=== PATIENT | female | born 1965 | race Caucasian/White ===

== ENCOUNTER 2016-08-08 22:13 | Emergency (ER) | payer OTHER ==
[~2016-08-08] VITALS: Ht 160 cm; Wt 79.5 kg
[~2016-08-08 22:13] MED LIST: CALC-952 PO; CITA20TA11 PO; MULT-1018 PO; OXYC1TAB91 PO; TAMS0.4C98 PO
[2016-08-08 22:15] VITALS: BP 133/83; PULSE 70; RESP 16; O2SAT 99
--- NOTE | 2016-08-08 23:11 | ED.REPORT ---
HPI-Headache Date of Service Aug 08, 2016 ED Provider: Doc,Ed MD The patient is a 51 yo female with history of migraine headache, anxiety, and gastric bypass who presents to the ER for migraine headache onset prior to arrival. Patient reports a migraine attack around 1600 today, which improved with rest and lying in the dark. However, around 2100, the headache returned and worse than before. The headache starts from the occiput and radiates to the front. The pain is throbbing. Other associated symptoms include nausea, photophobia, and phonophobia. She denies vomiting, neck stiffness, head trauma, SOB, CP, fever, chills, numbness, tingling, one-sided weakness, or slurred speech. Patient states to go to the ER for migraine attack in the past and the headache cocktail worked well for her. She is not on any migraine medication at home. She is on Endocet for recent right finger fracture and shoulder tendinitis. Nursing Notes Stated Complaint: HEADACHE/ VOMITING Chief Complaint: Headache Nursing Notes Reviewed: Yes Allergies: Coded Allergies: No Known Drug Allergies (Verified Allergy, Unknown, 08/08/16) Scheduled Calcium Carbonate/Vitamin D3 (Calcium 500 mg Chewable Tablet) 1 Each Tab.chew 3 EACH PO DAILY Citalopram (Citalopram) 20 Mg Tablet 20 MG PO DAILY Multivitamin (Multi Vitamin Daily) 1 Each Tablet 1 EACH PO DAILY Tamsulosin (Flomax) 0.4 Mg Capsule 0.4 MG PO DAILY Scheduled PRN Oxycodone HCl/Acetaminophen (Endocet 10-325 mg Tablet) 1 Each Tablet 2 EACH PO [id number] PRN PRN For Pain General Time Seen by MD: 23:10 Chief Complaint Migraine headache Hx Obtained From: Patient, Spouse Arrived By: Walk-in Sudden in Onset?: Yes Onset Occurred: Just prior to arrival Symptom Duration: Since onset Location: : Frontal bilateral: Occipital bilateral Quality: Painful, Throbbing Radiation: : Does not radiate Severity: Current: Moderate Severity: Maximum: Severe Associated with: Reports: Nausea, Photophobia, Denies: Aura visual, Confusion, Difficulty speaking, Fever, Nasal congestion , Numbness, Syncope, Vertigo, Visual disturbance, Vomiting Pertinent Negative: Pt denies other symptoms Exacerbated by: Head movement, Light, Sound Pertinent Negative: Relieved by nothing Recent Healthcare: No recent doctor visit Similar Sx Previous: Yes Risk-Headache )( SAH Risk Stratification RF Statements: No risk factors )( IC Mass Risk Stratification RF Statements: No risk factors Past Medical History Past Medical History Endometriosis Kidney infections Arthritis Migraine headaches Asthma Reports: GERD Past Surgical History CS x3 Laparoscopies Upper Endscoscopy (+gastritis, ?Sanchez's - early) Gastric Bypass Reports: Appendectomy, Hysterectomy Family History noncontributory Smoking History Former Smoker (quit in 1996) Social History Alcohol Use: Denies alcohol use Drug Use: Denies drug use Other Social History: Good social support, Ambulatory Status Independent Review of Systems Basic Review of Systems Respiratory: No shortness of breath, No cough, No wheeze Cardiovascular: No chest pain, No dyspnea on exertion, No orthopnea, No parox noct dyspnea, No palpitations Allergy / Immune: No allergy Constitutional: Denies: Chills, Fatigue, Fever, Lethargy Eyes: Reports: Photophobia, Denies: Blurred bilateral, Discharge bilateral, Visual loss bilateral Ears / Nose / Throat: Denies: Earache bilateral, Sinus problem GI: Reports: Nausea, Denies: Abdominal pain, Anorexia, Constipation, Diarrhea, Dysphagia, Vomiting Musculoskeletal: Reports: Joint pain, Neck pain Neurologic: Reports: Headache, Denies: Abnormal movement, Bladder dysfunction, Bowel dysfunction, Confusion , Dizziness, Focal weakness, Lightheaded, Numbness, Slurred speech, Unable to speak, Vision change, Weakness Psychiatric: Reports: Anxiety, Denies: Agitation, Confusion, Delusional, Depression Complete sys rev & neg: except as marked. Physical Exam Initial Vital Signs Vital Signs (First) Date Time Temp Pulse Resp B/P Pulse Ox O2 Delivery O2 Flow Rate FiO2 08/08/16 22:15 36.3 70 16 133/83 99 Room Air Initial VS: Reviewed, Vital signs normal ENT: Mucous membranes moist, Conjunctiva normal, No scleral icterus Respiratory: Breath sounds normal, Clear to auscultation, No respiratory distress Cardiovascular: Regular rate & rhythm, Heart sounds normal, Intact distal pulses Abdomen / GI: Soft, Non-tender, No guarding, No rebound, No distention Skin: Warm, Dry, No cyanosis Psychiatric: Mood/affect normal, Behavior normal, Normal thought content General/Constitutional: Awake, Alert, Well appearing, Cooperative Appearance / Presentation: Positive: In pain Head / Eyes: Atraumatic, Normocephalic, PERRL, EOMI, No periorbital redness Neck: Atraumatic, Supple, No adenopathy, No swelling, No crepitus Meningeal Signs / ROM: Positive: Rotation decreased L, Rotation decreased R, Negative: Brudzinski's positive, Kernig's positive, Nuchal rigidity present Neck / Muscle Tenderness: Positive: Paraspinal L... (Moderate), Paraspinal R... (Moderate) Neurologic: Oriented X3, Speech NL, No motor deficits, No sensory deficits, CN II - XII intact, Memory NL Respiratory / Chest: Atraumatic, Breath sounds NL, Breath sounds = bilat, No respiratory distress, No rales, No rhonchi Cardiovascular: Heart rate NL, Regular rhythm, Heart sounds NL, No murmurs Abdomen: Atraumatic, Soft, Non-tender, No guarding, No rebound, BS normoactive , No distention Interpretation & Diagnostics Lab Results Interpretation Test 08/09/16 00:01 Hold Purple Top Tube Received (Received) Hold Blue Top Tube Received (Received) Hold [place] Top Tube Received (Received) Hold [place] Top Tube Received (Received) Re-Eval/Medical Decision Med Decision/Clinical Course 51 yo female with history of migraine headache, anxiety, and gastric bypass who is accompanied by her to the ER for migraine headache onset prior to arrival. Associated symptoms include nausea, photophobia, and phonophobia. The headache is worse than her typical migraine headache, but she denies any atypical feature from the usual migraine. No head trauma. On exam, patient appears uncomfortable, but non-toxic. Her neurological exam is benign with no nuchal rigidity. Therefore, no indication for advanced imaging and no indication for additional lab. Her symptoms improved after standard migraine cocktail here. She was discharged home in stable improved condition. Source of Hx: Family Re-Evaluation/Progress : Time of Eval: 00:30 )( Patient Status: Condition improved Re-Evaluation/Progress Note: Patient reports improvement of her symptoms after administration of the followin L of NS Haloperidol+Dexamethasone+Benadryl Ondasetron Ketorolac Pantoprazole Counseled Regarding: Diagnosis, Lab results, Need for follow-up, When/why to return to ED Discharge & Departure Shift Change Sign-Out Response to Therapy: Improved Impression: Primary Impression: Migraine Migraine type: without aura Status migrainosus presence: without status migrainosus Intractability: not intractable Qualified Code: G43.009 - Migraine without aura, not intractable, without status migrainosus Disposition: Home Discharge Condition All VS Reviewed: Yes Condition: Improved Patient Instructions: Migraine Headache (ED) Additional Instructions: It appears that your headache is likely due to a migraine attack. You were given a litter of IV fluid and some IV medications that seem to help the headache. You should follow up with your PCP in 1-2 weeks. Discuss with him about medications that can help prevent migraine attacks. Keep yourself hydrated and get some rest. I do not suspect a dangerous cause for your headache; however, please return to the ER if the headache gets worse, or if you develop slurred speech, numbness, tingling, one-sided weakness, or change in mental status. Referrals: Jose Pineda MD (PCP) Attending Statement As attending of record for this patient, I conducted an independent history and physical exam, and I concur with the documentation in the resident note above, and as amended. copies to: Jose Pineda MD, Christopher W MD Aug 08, 2016 23:11 Hood Torrez DO Aug 08, 2016 23:52
[2016-08-08] MEDS ORDERED: 0.9% Sodium Chloride 1,000 ML IV ONE (23:41)
[2016-08-08] MEDS ORDERED: Dexamethasone 10 mg/mL Inj IVPUSH ONE (23:45)
[2016-08-08] MEDS ORDERED: Haloperidol 5 mg/mL Inj IVPUSH ONE (23:45)
[2016-08-08] MEDS ORDERED: Ondansetron 2 mg/mL 2 mL Inj IVPUSH ONE (23:45)
[2016-08-08] MEDS ORDERED: Pantoprazole 4 mg/mL 10 mL Inj IVPUSH ONE (23:45)
[2016-08-09 01:19] VITALS: BP 128/83; PULSE 64; RESP 18; O2SAT 97
== END 2016-08-09 01:11 | disposition home or self-care (01) ==
LOC: SED 22:13
DX: G43.009 Migraine without aura, not intractable, without status migrainosus (principal); F41.9 Anxiety disorder, unspecified; K21.9 Gastro-esophageal reflux disease without esophagitis; J45.909 Unspecified asthma, uncomplicated; Z98.84 Bariatric surgery status; Z87.440 Personal history of urinary (tract) infections; Z87.891 Personal history of nicotine dependence
CPT/HCPCS: 96361; 96374; 96375; 99284; J1100; J1200; J1630; J1885; J2405; J7030

== ENCOUNTER 2016-08-11 05:36 | Emergency (ER) | payer OTHER ==
[~2016-08-11] VITALS: Ht 160 cm; Wt 79.5 kg
[2016-08-11 05:39] VITALS: BP 160/86; PULSE 76; RESP 16; O2SAT 99
[2016-08-11] MEDS ORDERED: 0.9% Sodium Chloride 1,000 ML IV ONE (06:24)
[2016-08-11] MEDS ORDERED: ProchlorPERazine 5 mg/mL 2 mL Inj IVPUSH ONE (06:25)
[2016-08-11] MEDS ORDERED: Dexamethasone 10 mg/mL Inj IVPUSH ONE (06:25)
--- NOTE | 2016-08-11 06:34 | ED.REPORT ---
HPI-Headache Date of Service Aug 11, 2016 ED Provider: Alfred Parks DO 51 yo female with history of migraine headache, anxiety, and gastric bypass who presents to the ER for migraine headache onset prior to arrival. Patient reports her left shoulder bothered her a lot last night, which developed into a mild migraine attack. She took 1/2 tab of the Endocet 10mg and her headache improved. However, around 0500 this morning, patient woke up to go to the bathroom when the headache returned and worse than last night. The headache starts from the left occiput and radiates to the entire head. The pain is throbbing and rates 10/10 on the pain scale. Other associated symptoms include nausea, vomiting, neck pain, generalized shaking, photophobia, and phonophobia. No aura. Patient admits that she is behind on her daily fluid requirement, which she started after the gastric bypass. She denies head trauma, SOB, CP, fever, chills, numbness, tingling, one-sided weakness, or slurred speech. No atypical features from the regular migraine. Of note, she was seen in the ER on 08/09 for similar symptoms, which improved with the headache cocktail. She was discharged with recommendation to follow up with her PCP for migraine medication, but she has not set up the appointment yet. She is not on any migraine medication at home currently. Also, patient states that she might overexert herself at her PT appointment on Saturday. Nursing Notes Stated Complaint: NAUSEA, VOMITING Chief Complaint: Headache Nursing Notes Reviewed: Yes Allergies: Uncoded Allergies: NSAIDS (Adverse Reaction, Intermediate, 08/11/16) GASTRIC BYPASS Scheduled Calcium Carbonate/Vitamin D3 (Calcium 500 mg Chewable Tablet) 1 Each Tab.chew 3 EACH PO DAILY Citalopram (Citalopram) 20 Mg Tablet 20 MG PO DAILY Multivitamin (Multi Vitamin Daily) 1 Each Tablet 1 EACH PO DAILY Tamsulosin (Flomax) 0.4 Mg Capsule 0.4 MG PO DAILY Scheduled PRN Cyclobenzaprine (Cyclobenzaprine) 7.5 Mg Tablet 7.5 MG PO TID PRN PRN Spasm Oxycodone HCl/Acetaminophen (Endocet 10-325 mg Tablet) 1 Each Tablet 2 EACH PO [id number] PRN PRN For Pain General Time Seen by MD: 06:01 Chief Complaint Headache, Neck pain Hx Obtained From: Patient, Spouse Arrived By: Walk-in Sudden in Onset?: Yes Onset Occurred: Just prior to arrival Symptom Duration: Since onset Location: : Generalized Quality: Same as prior, Throbbing Radiation: : Neck, left lateral: Neck, posterior: Neck, right lateral Severity: Current: Pain level 10 out of 10 Severity: Maximum: Pain level 10 out of 10 Associated with: Reports: Nausea, Pain, Photophobia, Vomiting, Denies: Aura sensory, Aura visual, Confusion, Difficulty speaking, Fever, Nasal congestion, Numbness, Vertigo, Visual disturbance Pertinent Negative: Pt denies other symptoms Exacerbated by: Head movement, Light, Neck movement, Sound Pertinent Negative: Relieved by nothing Recent Healthcare: Recent doctor visit Similar Sx Previous: Yes Risk-Headache )( SAH Risk Stratification RF Statements: No risk factors )( IC Mass Risk Stratification RF Statements: No risk factors Past Medical History Past Medical History Endometriosis Kidney infections Arthritis Migraine headaches Asthma Reports: GERD Past Surgical History CS x3 Laparoscopies Upper Endscoscopy (+gastritis, ?Sanchez's - early) Gastric Bypass Reports: Appendectomy, Hysterectomy Family History noncontributory Smoking History Former Smoker Social History Alcohol Use: Denies alcohol use Drug Use: Denies drug use Other Social History: Good social support, Ambulatory Status Independent Review of Systems Basic Review of Systems Respiratory: No shortness of breath, No cough, No wheeze Cardiovascular: No chest pain, No dyspnea on exertion, No orthopnea, No parox noct dyspnea, No palpitations : No dysuria, No frequency Constitutional: Denies: Chills, Fatigue Eyes: Reports: Photophobia, Denies: Blurred bilateral, Discharge bilateral, Visual loss bilateral Ears / Nose / Throat: Denies: Ear drainage bilateral, Earache bilateral, Nasal congestion, Sore throat, Throat pain GI: Reports: Nausea, Vomiting, Denies: Abdominal pain, Anorexia, Diarrhea Musculoskeletal: Reports: Extremity pain, Joint pain, Neck pain, Denies: Back pain Neurologic: Reports: Headache, Shaking, Denies: Abnormal movement, Bowel dysfunction, Confusion, Dizziness, Focal weakness, Lightheaded, Numbness, Slurred speech, Spinning sensation, Unable to speak, Vision change Psychiatric: Reports: Anxiety, Denies: Agitation, Change mental status, Confusion, Delusional Complete sys rev & neg: except as marked. Physical Exam Initial Vital Signs Vital Signs (First) Date Time Temp Pulse Resp B/P Pulse Ox O2 Delivery O2 Flow Rate FiO2 08/11/16 05:39 36.1 76 16 160/86 99 Room Air Initial VS: Reviewed (slightly hypertensive, likely due to pain) ENT: Mucous membranes moist, Conjunctiva normal, No scleral icterus Respiratory: Breath sounds normal, Clear to auscultation, No respiratory distress Cardiovascular: Regular rate & rhythm, Heart sounds normal, Intact distal pulses Skin: Warm, Dry, No cyanosis General/Constitutional: Awake, Alert, Cooperative, Not toxic appearing Distress / Hydration: Positive: Dehydration mild, Distress moderate Behavior: Positive: Anxious, Restless Appearance / Presentation: Positive: In pain Head / Eyes: Atraumatic, Normocephalic, PERRL, EOMI, No nystagmus, Conjunctiva NL Tenderness to palpation on the occiput and bilateral mastoid areas, but no bogginess or erythema noted. Neck: Atraumatic, Supple, Thyroid NL Meningeal Signs / ROM: Positive: Rotation decreased L, Rotation decreased R Neck / Muscle Tenderness: Positive: Paraspinal L... (Moderate), Paraspinal R... (Moderate), Sternocleidomastoid L... (Moderate) Soft Tissue Neck: Positive: Cervical adenopathy L... (Anterior) Limited range of motion due to pain. Tender to palpation with mild spasm. No nuchal rigidity. Neurologic: Oriented X3, Speech NL, No motor deficits, No sensory deficits, CN II - XII intact, Memory NL ENT: Atraumatic, Airway patent, No trismus, Tympanic membs NL, Ext aud canal NL , No sinus tenderness, No facial swelling Right Ear / Mastoid: Positive: Mastoid area tender, Negative: Mastoid area red Left Ear / Mastoid: Positive: Mastoid area tender, Negative: Mastoid area red Respiratory / Chest: Atraumatic, Breath sounds NL, Breath sounds = bilat, No rales, No wheezing, No stridor Cardiovascular: Heart rate NL, Regular rhythm, Heart sounds NL, No murmurs Abdomen: Atraumatic, Soft, Non-tender, No guarding, No rebound, BS normoactive , No distention Psychiatric: Affect NL, Not suicidal Abnormal Mood/Affect: Positive: Anxious Upper Extremity / MS: Atraumatic, Inspection NL, Neurologic intact, Vascular intact Upper Ext Brief Normals: Shoulder R exam normal Left Shoulder: Positive: ROM reduced, Tenderness present... (Moderate), Warmth present Interpretation & Diagnostics Lab Results Interpretation Test 08/11/16 06:16 Hold Purple Top Tube Received (Received) Hold [place] Top Tube Received (Received) Lab values outside NL range: no clinical significance. Re-Eval/Medical Decision Med Decision/Clinical Course 51 yo female with history of migraine headache, anxiety, and gastric bypass who is accompanied by her to the ER for migraine headache onset prior to arrival. Associated symptoms include nausea, vomiting, photophobia, and phonophobia. This is the second time patient goes to the ER for the same symptoms within a week. She continues to deny any atypical feature from the usual migraine. No head trauma. However, she admits to over-exert herself at the PT appointment prior to the onset of her migraines. On exam, patient appears uncomfortable, but non-toxic. Her neurological exam is benign with no nuchal rigidity. There is significant tenderness to palpation in her neck and mastoid areas, but no erythema or bogginess that indicate acute mastoiditis. The ear exam is also negative for infection. Therefore, no indication for advanced imaging and no indication for additional lab. It is likely that her headache is cervicogenic given the muscle spasm and tenderness on exam. In addition to the standard migraine cocktail, I performed OMT on the patient to help with the neck strain. Patient reported improvement and was discharged home in stable improved condition. A prescription for Cyclobenzaprine was sent to her pharmacy for muscle spasm. Re-Evaluation/Progress : Time of Eval: 07:20 )( Patient Status: Condition improved, Moderate relief Re-Evaluation/Progress Note: Patient reports improvement of her BOWEN after the cocktail. OMT was offered with risks and benefits. Patient wishes to proceed. After OMT, patient states the neck pain improves, but her BOWEN is still 6/10. she would like something more for the BOWEN. Will give her Haloperidol 2mg IV. Counseled Regarding: Diagnosis, Lab results, Need for follow-up, When/why to return to ED Discharge & Departure Shift Change Sign-Out Response to Therapy: Improved Impression: Primary Impression: Migraine Migraine type: without aura Status migrainosus presence: without status migrainosus Intractability: not intractable Qualified Code: G43.009 - Migraine without aura, not intractable, without status migrainosus Additional Impression: Neck pain Disposition: Home Discharge Condition All VS Reviewed: Yes Condition: Improved Patient Instructions: Acute Neck Pain (ED), Migraine Headache (ED) Additional Instructions: Based on your history and our exam, it is likely that your migraine headache was triggered by the neck and shoulder pain. You were given a litter of IV fluid and some IV medications that seem to help the headache. With your permission, I also performed OMT (osteopathic manipulative treatment) on your neck, which hopefully will help with the neck tension and pain. If this is something you would like as outpatient, please discuss with your PCP for referral to the residency clinic. You can apply ice/heat as needed for the neck pain. I sent a prescription for a muscle relaxant called Cyclobenzaprine to your pharmacy. Take it as directed. Please use the Endocet sparingly as it can lead to rebound or worsening headache. You should follow up with your PCP in 1-2 weeks. As suggested at the last ER visit, please discuss with your PCP about medications that can help prevent migraine attacks. Keep yourself hydrated and get some rest. Once again, I do not suspect a dangerous cause for your headache; however, please return to the ER if the headache gets worse, or if you develop slurred speech, vomiting, numbness, tingling, one-sided weakness, or change in mental status. Referrals: Jose Pineda MD (PCP) 1 Week Attending Statement The patient was seen and examined together with Dr. Torrez on 08/11/16 and I have added additional information to the note above. copies to: Jose Pineda MD, Ngochanh H DO Aug 11, 2016 06:34 Alfred Parks DO Aug 11, 2016 08:00
[2016-08-11] MEDS ORDERED: Haloperidol 5 mg/mL Inj IVPUSH ONE (07:30)
[2016-08-11] MEDS ORDERED: CYCL7.5T27 PO (07:54)
[2016-08-11 08:10] VITALS: BP 126/85; PULSE 66; RESP 14; O2SAT 98
== END 2016-08-11 08:05 | disposition home or self-care (01) ==
LOC: SED 05:36
DX: G43.909 Migraine, unspecified, not intractable, without status migrainosus (principal); M54.2 Cervicalgia; K21.9 Gastro-esophageal reflux disease without esophagitis; Z87.891 Personal history of nicotine dependence; Z90.710 Acquired absence of both cervix and uterus; Z79.899 Other long term (current) drug therapy; Z88.8 Allergy status to other drugs, medicaments and biological substances
CPT/HCPCS: 96361; 96374; 96375; 99284; J0780; J1100; J1200; J1630; J7030

== ENCOUNTER 2016-08-14 19:36 | Emergency (ER) | payer OTHER ==
[~2016-08-14 19:36] MED LIST changes: +CYCL7.5T27 PO
== END 2016-08-14 20:00 | disposition left against medical advice (07) ==
LOC: SED 19:36
DX: G43.909 Migraine, unspecified, not intractable, without status migrainosus (principal); Z53.21 Procedure and treatment not carried out due to patient leaving prior to being seen by health care provider